=== PATIENT | male | born 1970 | race Caucasian/White ===

== ENCOUNTER 2017-02-22 10:25 | Emergency (ER) | payer BC, OTHER ==
[2017-02-22] MEDS ORDERED: Lisinopril 10 MG Tab PO ONE (10:44)
[2017-02-22] MEDS ORDERED: Ketorolac 60 MG/2 ML SDV IM ONE (10:45)
--- NOTE | 2017-02-22 10:50 | EDM.PDOC ---
ED HPI Trauma - General Chief Complaint: Lower Extremity Injury/Pain Stated Complaint: gout pain Time Seen by Provider: 02/22/17 10:30 Source: Reports: Patient History Limitations: Reports: No limitations - History of Present Illness INITIAL COMMENTS - FREE TEXT/NARRATIVE: PT STATES BOTH FEET HURT AND HAVE BEEN SWOLLEN FOR PAST WEEK. HAS H/O GOUT AND STATES SIMILAR SYMPTOM IN PAST. H/O HTN BUT RAN OUT OF LISINOPRIL 2 WEEKS AGO. DENIES SOB, CP, CALF PAIN, N/V/D, OR FEVER. Symptom Onset Date: 02/15/17 Method of Injury: other (NO INJURY OR INSULT) Pain/Injury Location: Reports: lower extremity, right, lower extremity, left Associated Symptoms: Reports: no other symptoms Allergies/ADRs: Allergies No Known Drug Allergies Allergy (Verified 02/22/17 10:38) Cannot Remember Home Medications: Ambulatory Orders Indomethacin [Indocin] 25 mg PO DAILY 02/22/17 [Confirmed 02/22/17] Lisinopril [Lisinopril] 10 mg PO DAILY 02/22/17 [Confirmed 02/22/17] Past Medical History Cardiovascular History: Reports: High cholesterol, Hypertension Gastrointestinal History: Reports: Inflammatory bowel disease Musculoskeletal History: Reports: Gout - Infectious Disease History Infectious Disease History: Reports: Chicken pox, Measles - Past Surgical History Cardiovascular Surgical History: Reports: None GI Surgical History: Reports: None Musculoskeletal Surgical History: Reports: None Social & Family History - Tobacco Use Smoking Status *Q: Light Tobacco Smoker Years of Tobacco use: 20 Packs/Tins Daily: 1 - Alcohol Use Days Per Week of Alcohol Use: 5 Number of Drinks Per Day: 6 Total Drinks Per Week: 30 - Recreational Drug Use Recreational Drug Use: No Review of Systems - Review of Systems Review Of Systems: ROS reveals no pertinent complaints other than HPI. Constitutional: Reports: no symptoms Eyes: Reports: no symptoms Ears: Reports: no symptoms Nose: Reports: no symptoms Mouth/Throat: Reports: no symptoms Respiratory: Reports: No Symptoms Cardiovascular: Reports: no symptoms GI/Abdominal: Reports: No symptoms Genitourinary: Reports: no symptoms Musculoskeletal: Reports: no symptoms Skin: Reports: no symptoms Neurological: Reports: No Symptoms Psychiatric: Reports: no symptoms Trauma Exam - Physical Exam Exam: See Below Exam Limited By: No limitations General Appearance: Reports: alert, WD/WN, no apparent distress Head: Reports: atraumatic, normocephalic Eyes: bilateral eye: normal inspection Nose: Reports: normal inspection, normal mucousa, no blood Throat/Mouth: Reports: Normal inspection, Normal oropharynx, No airway compromise Respiratory Exam: Reports: no respiratory distress, lungs clear, normal breath sounds, no accessory muscle use, chest non-tender Cardiovascular: Reports: regular rate, rhythm, no murmur GI/Abdominal: Reports: normal bowel sounds, soft, non tender, no organomegaly, no distention, no abnormal bruit, no mass Back: Reports: full range of motion, normal inspection, non-tender. Denies: CVA tenderness (R), CVA tenderness (L) Extremities: Reports: pedal edema (BILAT 2+ ANKLE DISTAL) Neurologic: Reports: alert, normal mood/affect, oriented x 3 Skin: Reports: Normal color, Warm/dry Course - Vital Signs Last Recorded V/S: Last Vital Signs Temp 97 F 02/22/17 10:30 Pulse 86 02/22/17 10:30 Resp 20 02/22/17 10:30 BP 187/101 H 02/22/17 10:30 Pulse Ox 96 02/22/17 10:30 - Orders/Labs/Meds Orders: Active Orders 24 hr Category Date Time Status CBC WITH AUTO DIFF [HEME] Stat Lab 02/22/17 10:44 Ordered COMPREHENSIVE METABOLIC PN,CMP [CHEM] Stat Lab 02/22/17 10:44 Ordered SEDIMENTATION RATE MANUAL [HEME] Stat Lab 02/22/17 10:44 Ordered - Re-Assessments/Exams Free Text/Narrative Re-Assessment/Exam: 02/22/17 12:02 PT AFEBRILE, NONTOXIC APPEARING, PAIN DECREASED. 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
[2017-02-22 11:22] LABS: CHLORIDE,CL 96 mmol/L (98-115); SODIUM,NA 140 mmol/L (136-145)
[2017-02-22 12:10] VITALS: BP 181/90
== END 2017-02-22 12:30 | disposition home or self-care (01) ==
LOC: KA.ED 10:25
DX: M1A.0790 Idiopathic chronic gout, unspecified ankle and foot, without tophus (tophi) (principal); E78.00 Pure hypercholesterolemia, unspecified; I10 Essential (primary) hypertension; Z79.899 Other long term (current) drug therapy
CPT/HCPCS: 36415; 80053; 85025; 85651; 96372; 99283; A9270; J1885